=== PATIENT | male | born 1955 | race Asian ===

== ENCOUNTER → 2016-10-14 | Outpatient (CLI) | payer OTHER ==
[~2016-10-14] MED LIST: ASPI81TA3 PO; LISI10TA2 PO; METO-448 PO; MEVA40 PO
== END | disposition home or self-care (01) ==
LOC: CRE 09:35
PROVIDERS: ATTEND Internal Medicine
DX: Z95.1 Presence of aortocoronary bypass graft (principal)
CPT/HCPCS: 93797